=== PATIENT | female | born 1965 | race African-American/Black ===

== ENCOUNTER 2017-09-19 12:11 | Emergency (ER) | payer MEDICAID, OTHER ==
[~2017-09-19] VITALS: Ht 162.6 cm; Wt 70.0 kg
[~2017-09-19 12:11] MED LIST: PHENYTOIN; [UNRECOGNIZED DRUG - REMARK]
[2017-09-19] MEDS ORDERED: PHENYTOIN SODIUM EXTENDED 100MG CAPSULE PO ONE (13:45)
[2017-09-19 14:07] LABS: BASOPHILS % 0.5 % (0.0-2.0); EOSINOPHILS % 1.3 % (0.0-5.0); HEMATOCRIT. 38.9 % (36.0-48.0); HEMOGLOBIN. 12.6 g/dL (12.0-16.0); LYMPHOCYTES % 35.8 % (20.0-50.0); MEAN CORPUSCULAR HEMOGLOBIN 25.4 pg (28.0-32.0); MEAN CORPUSCULAR VOLUME 78.4 fL (81.0-99.0); MEAN PLATELET VOLUME 9.1 fl (7.4-10.4); MONOCYTES % 5.6 % (2.0-8.0); NEUTROPHILS % 56.8 % (40.0-76.0); PLATELET 230 x1000/uL (130-400); RED BLOOD CELL COUNT 4.95 mill/uL (4.2-5.4); RED CELL DISTRIBUTION WIDTH 13.6 % (11.6-14.6)
[2017-09-19 14:22] LABS: PROTHROMBIN TIME 10.6 sec (9.4-11.6)
[2017-09-19 14:23] LABS: BETA HYDROXYBUTYRATE 0.1 mMol/L (0.0-0.3); CARBON DIOXIDE 27 mEq/L (21-32); CHLORIDE 100 mEq/L (98-107); TROPONIN I < 0.02 ng/mL (0.00-0.04)
[2017-09-19 14:26] LABS: CLARITY URINE CLEAR (CLEAR); COLOR URINE YELLOW (YELLOW); KETONES URINE NEGATIVE (NEGATIVE); LEUKOCYTE ESTERASE URINE NEGATIVE (NEGATIVE); NITRITE URINE NEGATIVE (NEGATIVE); OCCULT BLOOD URINE NEGATIVE (NEGATIVE); PROTEIN URINE NEGATIVE (NEGATIVE); SPECIFIC GRAVITY URINE 1.042 (1.005-1.030); UROBILINOGEN URINE 0.2 E.U./dL (0.2-1.0)
[2017-09-19] MEDS ORDERED: SODIUM CHLORIDE 0.9% 1,000 ML IV ONE ×2 (14:53)
[2017-09-19] MEDS ORDERED: SODIUM CHLORIDE 0.9% 1,000 ML IV NR ×2 (15:15)
[2017-09-19] MEDS ORDERED: DEXTROSE 50% WATER 50ML SYRINGE IV PRN (15:15)
[2017-09-19] MEDS ORDERED: PHENYTOIN SODIUM 300 MG in SODIUM CHLORIDE 0.9% 50 ML IV SCH (15:15)
[2017-09-19] MEDS ORDERED: HYDRALAZINE 20MG/ML VIAL IV PRN (15:15)
[2017-09-19] MEDS ORDERED: BLOOD SUGAR DIAGNOSTIC STRIP TEST SCH (17:00)
[2017-09-19 17:03] LABS: HCG SCREEN NEGATIVE
[2017-09-19 17:28] VITALS: BP 134/90
[2017-09-19] MEDS ORDERED: INSULIN LISPRO 100 UNITS/ML SUBCUT SCH (18:20)
== END 2017-09-19 17:50 | disposition home or self-care (01) ==
LOC: ER 12:41 → CANBEDREQ 20:21
DX: R56.9 Unspecified convulsions (principal); E11.65 Type 2 diabetes mellitus with hyperglycemia; R07.9 Chest pain, unspecified
CPT/HCPCS: 36415; 70450; 71045; 80053; 80185; 81001; 82010; 83880; 84484; 84703; 85025; 85610; 93005; 96360; 96361; 99285; Z7610

== ENCOUNTER 2018-06-13 14:24 | Inpatient (IN) | payer MEDICAID ==
[~2018-06-13] VITALS: Ht 152.4 cm; Wt 69.9 kg
[2018-06-13] MEDS ORDERED: MORPHINE SULFATE 4 MG/ML CPJ (NOT FOR IM USE) IV STA (15:20)
[2018-06-13] MEDS ORDERED: ONDANSETRON HCL 4MG/2ML INJ IV STA (15:20)
[2018-06-13 15:56] LABS: BASOPHILS % 0.6 % (0.0-2.0); EOSINOPHILS % 1.5 % (0.0-5.0); HEMATOCRIT. 36.5 % (36.0-48.0); HEMOGLOBIN. 12.1 g/dL (12.0-16.0); MEAN CORPUSCULAR VOLUME 78.4 fL (81.0-99.0); MEAN PLATELET VOLUME 8.9 fl (7.4-10.4); MONOCYTES % 7.1 % (2.0-8.0); NEUTROPHILS % 53.8 % (40.0-76.0); PLATELET 245 x1000/uL (130-400); RED BLOOD CELL COUNT 4.65 mill/uL (4.2-5.4); RED CELL DISTRIBUTION WIDTH 13.8 % (11.6-14.6)
[2018-06-13 16:05] LABS: D-DIMER 0.24 mg/L FEU (<0.50); PARTIAL THROMBOPLASTIN TIME 26.6 sec (23.4-31.0); PROTHROMBIN TIME 9.8 sec (9.1-11.1)
[2018-06-13 16:06] LABS: CHLORIDE 103 mEq/L (98-107)
[2018-06-13] MEDS ORDERED: CLONIDINE 0.1MG TABLET PO PRN (18:00)
[2018-06-13] MEDS ORDERED: MORPHINE SULFATE 4 MG/ML CPJ (NOT FOR IM USE) IV PRN (18:00)
[2018-06-13] MEDS ORDERED: DEXTROSE 50% WATER 50ML SYRINGE IV PRN (18:00)
[2018-06-13] MEDS ORDERED: ACETAMINOPHEN 325MG TABLET PO PRN (18:00)
[2018-06-13] MEDS ORDERED: ONDANSETRON HCL 4MG/2ML INJ IV PRN (18:00)
[2018-06-13 19:20] LABS: CREATINE KINASE 169 IU/L (26-192); CREATINE KINASE MB FRACTION < 1.0 ng/mL (0.5-3.6); HDL CHOLESTEROL 54 mg/dL (40-59); LDL CHOLESTEROL 120 mg/dL (5-100)
[2018-06-13] MEDS: INSULIN LISPRO 100 UNITS/ML SUBCUT SCH (20:43)
[2018-06-13 21:13] VITALS: BP 136/72
[2018-06-13] MEDS ORDERED: LISI40TA4 MT (22:42)
[2018-06-13] MEDS ORDERED: PHEN100C4 MT (22:42)
[2018-06-13] MEDS ORDERED: METO25TA6 MT (22:42)
[2018-06-13] MEDS ORDERED: ASPI-1158 MT (22:42)
[2018-06-13] MEDS ORDERED: METF-816 MT (22:42)
[2018-06-13] MEDS ORDERED: ATOR-2 MT (22:42)
[2018-06-13] MEDS ORDERED: NITR0.4T49 SL (22:42)
[2018-06-13] MEDS ORDERED: CALC-1098 MT (22:45)
[2018-06-13] MEDS ORDERED: INSLIS SUBCUT (22:45)
[2018-06-13] MEDS ORDERED: INSU100I24 SQ (22:45)
[2018-06-13] MEDS ORDERED: NITROGLYCERIN SL SCH (23:45)
[2018-06-13] MEDS ORDERED: PHENYTOIN SODIUM EXTENDED 100MG CAPSULE PO SCH (23:50)
[2018-06-13 23:51] LABS: CREATINE KINASE 133 IU/L (26-192); CREATINE KINASE MB FRACTION < 1.0 ng/mL (0.5-3.6)
[2018-06-14] VITALS: BP 131/59
[2018-06-14] MEDS ORDERED: ZOLPIDEM TARTRATE 5MG TABLET PO PRN
[2018-06-14] MEDS ORDERED: NITROGLYCERIN 0.4MG TABLET SL SL PRN (00:45)
[2018-06-14 05:41] VITALS: BP 149/87
[2018-06-14] MEDS ORDERED: LORAZEPAM 2MG/ML CPJ IV PRN (06:15)
[2018-06-14] MEDS: BLOOD SUGAR DIAGNOSTIC STRIP TEST SCH ×2 (06:17→12:40)
[2018-06-14 07:36] LABS: CHLORIDE 103 mEq/L (98-107)
[2018-06-14 07:37] LABS: EOSINOPHILS % 1.9 % (0.0-5.0); HEMATOCRIT. 34.5 % (36.0-48.0); HEMOGLOBIN. 11.3 g/dL (12.0-16.0); LYMPHOCYTES % 43.7 % (20.0-50.0); MEAN CORPUSCULAR HEMOGLOBIN 25.6 pg (28.0-32.0); MEAN CORPUSCULAR VOLUME 78.6 fL (81.0-99.0); MEAN PLATELET VOLUME 8.9 fl (7.4-10.4); MONOCYTES % 6.4 % (2.0-8.0); PLATELET 216 x1000/uL (130-400); RED BLOOD CELL COUNT 4.39 mill/uL (4.2-5.4); RED CELL DISTRIBUTION WIDTH 13.7 % (11.6-14.6)
[2018-06-14 08:03] VITALS: BP 127/85
[2018-06-14] MEDS ORDERED: METFORMIN HCL 500MG TABLET PO SCH (08:10)
[2018-06-14] MEDS: INSULIN LISPRO 100 UNITS/ML SUBCUT SCH ×2 (08:52→13:39)
[2018-06-14] MEDS ORDERED: MEDICATION NOT ON FORMULARY EA (Metformin HCl (Metformin HCl ER) 1 TAB) MT SCH (09:00)
[2018-06-14] MEDS ORDERED: ASPIRIN 81MG TABLET PO SCH (09:00)
[2018-06-14] MEDS ORDERED: CALCIUM CARBONATE/VITAMIN D3 500MG TABLET PO SCH (09:00)
[2018-06-14] MEDS ORDERED: MEDICATION NOT ON FORMULARY EA (Aspirin (Aspirin Ec) 1 TAB) MT SCH (09:00)
[2018-06-14] MEDS ORDERED: MEDICATION NOT ON FORMULARY EA (Atorvastatin Calcium 1 TAB) MT SCH (09:00)
[2018-06-14] MEDS ORDERED: METOPROLOL TARTRATE 25MG TABLET PO SCH (09:00)
[2018-06-14] MEDS ORDERED: LISINOPRIL 40MG TABLET PO SCH (09:00)
[2018-06-14] MEDS ORDERED: MEDICATION NOT ON FORMULARY EA (Metoprolol Tartrate 1 TAB) MT SCH (09:00)
[2018-06-14] MEDS ORDERED: REGADENOSON 0.4 MG/5 ML IV ONE ×2 (09:30→12:01)
[2018-06-14] MEDS: NITROGLYCERIN OINT 1GM/INCH UDPKT TD SCH ×2 (10:00→14:47)
[2018-06-14 11:01] LABS: T4 FREE 1.03 ng/dL (0.76-1.46)
[2018-06-14 12:00] VITALS: BP 127/73
[2018-06-14] MEDS ORDERED: PHENYTOIN SODIUM EXTENDED 100MG CAPSULE PO SCH (13:00)
[2018-06-14 15:56] VITALS: BP 108/61
[2018-06-14 16:37] LABS: CREATINE KINASE 113 IU/L (26-192)
[2018-06-14 16:38] LABS: CREATINE KINASE MB FRACTION < 1.0 ng/mL (0.5-3.6)
[2018-06-14] MEDS ORDERED: CLOPIDOGREL 75MG TABLET PO SCH (18:00)
[2018-06-14] MEDS ORDERED: ATORVASTATIN CALCIUM 40MG TABLET PO SCH (21:00)
[2018-06-15] MEDS ORDERED: ASPIRIN 81MG TABLET PO SCH (09:00)
== END 2018-06-14 17:45 | disposition home or self-care (01) | DRG 203 ==
LOC: ER 14:28 → 7WST 17:45 → ENRESERV 19:45
PROVIDERS: ADMIT Internal Medicine; ATTEND Internal Medicine
DX: M94.0 Chondrocostal junction syndrome [Tietze] (principal); E11.65 Type 2 diabetes mellitus with hyperglycemia; R07.9 Chest pain, unspecified; I25.10 Atherosclerotic heart disease of native coronary artery without angina pectoris; E78.5 Hyperlipidemia, unspecified; E44.1 Mild protein-calorie malnutrition; G40.909 Epilepsy, unspecified, not intractable, without status epilepticus; I10 Essential (primary) hypertension; I25.2 Old myocardial infarction; Z79.82 Long term (current) use of aspirin; Z86.73 Personal history of transient ischemic attack (TIA), and cerebral infarction without residual deficits; Z88.0 Allergy status to penicillin; Z68.30 Body mass index [BMI] 30.0-30.9, adult; Z79.84 Long term (current) use of oral hypoglycemic drugs; Z79.899 Other long term (current) drug therapy
CPT/HCPCS: 36415; 71045; 78452; 80048; 80061; 80185; 82550; 82553; 82962; 83036; 83880; 84439; 84443; 84484; 85379; 93005; 93017; 96374; 96375; 99285; A9500; J1815; J2270; J2405; J2785

== ENCOUNTER 2022-04-19 06:43 | Emergency (ER) | payer MEDICAID, OTHER ==
[~2022-04-19] VITALS: Ht 162.6 cm; Wt 75.0 kg
[~2022-04-19 06:43] MED LIST changes: +ASPI-1406 MT; +ATOR-2 MT; +CALC-1098 MT; +INSLIS SUBCUT; +INSU100I24 SQ; +LISI40TA13 MT; +METF-874 MT; +METO25TA6 MT; +NITR0.4T49 SL; +PHEN100C4 MT; -PHENYTOIN; -[UNRECOGNIZED DRUG - REMARK]
[2022-04-19] MEDS ORDERED: PHENYTOIN SODIUM 100MG/2ML VIAL IV ONE (07:45)
[2022-04-19 08:18] LABS: EOSINOPHILS % 1.3 % (0.0-5.0); HEMATOCRIT. 33.6 % (36.0-48.0); HEMOGLOBIN. 10.9 g/dL (12.0-16.0); MEAN CORPUSCULAR HEMOGLOBIN 25.5 pg (28.0-32.0); MEAN CORPUSCULAR VOLUME 78.5 fL (81.0-99.0); MEAN PLATELET VOLUME 9.1 fl (7.4-10.4); MONOCYTES % 6.3 % (2.0-8.0); NEUTROPHILS % 56.4 % (40.0-76.0); PLATELET 205 x1000/uL (130-400); RED BLOOD CELL COUNT 4.28 mill/uL (4.2-5.4); RED CELL DISTRIBUTION WIDTH 13.6 % (11.6-14.6)
[2022-04-19 08:22] LABS: CHLORIDE 107 mEq/L (98-107)
[2022-04-19] MEDS ORDERED: PHENYTOIN SODIUM 500MG in SODIUM CHLORIDE 0.9% 50ML IV NR (08:30)
[2022-04-19] MEDS ORDERED: PHENYTOIN SODIUM EXTENDED 100MG CAPSULE PO SCH (09:00)
[2022-04-19 09:57] VITALS: BP 170/92
== END 2022-04-19 11:20 | disposition home or self-care (01) ==
LOC: ER 06:43
DX: R56.9 Unspecified convulsions (principal); E11.9 Type 2 diabetes mellitus without complications; Z91.14 Patient's other noncompliance with medication regimen; Z88.0 Allergy status to penicillin; Z79.899 Other long term (current) drug therapy
CPT/HCPCS: 36415; 80048; 80185; 85025; 96365; 99284; J1165